=== PATIENT | male | born 1985 | race African-American/Black ===

== ENCOUNTER 2018-07-23 10:28 | Emergency (ER) | payer OTHER ==
[~2018-07-23] VITALS: Ht 172.7 cm; Wt 79.0 kg
[2018-07-23] MEDS ORDERED: LIDOCAINE HCL/PF 1% 10 MG/ML 5ML VIAL IJ ONE (13:15)
[2018-07-23] MEDS ORDERED: IBUPROFEN 800MG TABLET PO ONE (13:15)
[2018-07-23] MEDS ORDERED: BACITRACIN ZINC OINT UDPKT TOP ONE (13:15)
[2018-07-23 14:25] VITALS: BP 134/82
== END 2018-07-23 14:35 | disposition home or self-care (01) ==
LOC: ER 10:28
DX: H60.01 Abscess of right external ear (principal)
CPT/HCPCS: 69000; 99284; J3490; Z7610; 99283

== ENCOUNTER 2020-09-22 10:33 | Emergency (ER) | payer OTHER ==
[~2020-09-22] VITALS: Ht 172.7 cm; Wt 90.0 kg
[2020-09-22] MEDS ORDERED: ACETAMINOPHEN 325MG TABLET PO ONE (11:30)
[2020-09-22] MEDS ORDERED: TRAMADOL 50MG TABLET PO ONE (11:30)
[2020-09-22] MEDS ORDERED: IBUP-2029 MT (12:30)
[2020-09-22] MEDS ORDERED: LIDOCAINE 5% PATCH TOP SCH (12:45)
[2020-09-22] MEDS ORDERED: LIDO1ADH5 TP (12:46)
[2020-09-22 14:01] VITALS: BP 150/83
== END 2020-09-22 14:02 | disposition home or self-care (01) ==
LOC: ER 10:33
DX: M54.2 Cervicalgia (principal); M25.532 Pain in left wrist; F12.10 Cannabis abuse, uncomplicated
CPT/HCPCS: 29125; 73030; 73110; 73130; 99284

== ENCOUNTER 2020-12-02 16:16 | Emergency (ER) | payer OTHER ==
[~2020-12-02] VITALS: Ht 170.2 cm; Wt 89.0 kg
[~2020-12-02 16:16] MED LIST: IBUP-2029 MT; LIDO1ADH5 TP
[2020-12-02 16:34] VITALS: BP 132/91
[2020-12-02] MEDS ORDERED: AMOX-424 MT (18:05)
== END 2020-12-02 18:20 | disposition home or self-care (01) ==
LOC: ER 16:16
DX: H60.00 Abscess of external ear, unspecified ear (principal)
CPT/HCPCS: 99283; Z7610; 99281

== ENCOUNTER 2021-12-05 16:30 | Emergency (ER) | payer BC, OTHER ==
[~2021-12-05] VITALS: Ht 172.7 cm; Wt 88.0 kg
[~2021-12-05 16:30] MED LIST changes: +AMOX-424 MT
[2021-12-05] MEDS ORDERED: IBUP-2029 MT (17:20)
[2021-12-05] MEDS ORDERED: KETOROLAC 60MG/2ML VIAL IM ONE (17:30)
[2021-12-05 18:02] VITALS: BP 112/65
== END 2021-12-05 18:09 | disposition home or self-care (01) ==
LOC: ER 16:42
DX: M25.562 Pain in left knee (principal); I10 Essential (primary) hypertension; M79.89 Other specified soft tissue disorders; F12.10 Cannabis abuse, uncomplicated; Z79.899 Other long term (current) drug therapy
CPT/HCPCS: 73562; 96372; 99283; J1885

== ENCOUNTER → 2021-12-07 | Outpatient (CLI) | payer BC ==
[2021-12-07 17:22] LABS: BASOPHILS % 0.5 % (0.0-2.0); HEMOGLOBIN. 12.5 g/dL (14.0-18.0); MEAN CORPUSCULAR HEMOGLOBIN 27.4 pg (28.0-32.0); MEAN CORPUSCULAR VOLUME 82.9 fL (80.0-94.0); MEAN PLATELET VOLUME 7.6 fl (7.4-10.4); NEUTROPHILS % 75.5 % (40.0-76.0); PLATELET 321 x1000/uL (130-400); RED BLOOD CELL COUNT 4.58 mill/uL (4.7-6.1); RED CELL DISTRIBUTION WIDTH 15.5 % (11.6-14.6)
[2021-12-07 17:34] LABS: CHLORIDE 104 mEq/L (98-107)
[2021-12-07 17:49] LABS: HDL CHOLESTEROL 54 mg/dL (40-59); LDL CHOLESTEROL 162 mg/dL (5-100)
[2021-12-09 04:09] LABS: VITAMIN D 25-OH 12.4 ng/mL (30.0-100.0)
== END | disposition home or self-care (01) ==
LOC: LAB 16:21
PROVIDERS: ATTEND Internal Medicine
DX: E55.9 Vitamin D deficiency, unspecified (principal); E20.9 Hypoparathyroidism, unspecified
CPT/HCPCS: 36415; 80048; 80061; 80076; 82306; 84436; 84443; 85025

== ENCOUNTER → 2021-12-14 | Outpatient (CLI) | payer BC | END | disposition home or self-care (01) | LOC: RAD 14:17 | PROVIDERS: ATTEND Internal Medicine | DX: S82.202B Unspecified fracture of shaft of left tibia, initial encounter for open fracture type I or II (principal); M17.12 Unilateral primary osteoarthritis, left knee; X58.XXXA Exposure to other specified factors, initial encounter; Y93.89 Activity, other specified; Y92.89 Other specified places as the place of occurrence of the external cause; Y99.8 Other external cause status | CPT/HCPCS: 73552; 73562; 73590 ==

== ENCOUNTER → 2021-12-31 | Outpatient (CLI) | payer BC | END | disposition home or self-care (01) | LOC: NM 07:57 | PROVIDERS: ATTEND Internal Medicine | DX: L03.116 Cellulitis of left lower limb (principal); M79.605 Pain in left leg | CPT/HCPCS: 93971 ==

== ENCOUNTER → 2022-01-11 | Outpatient (CLI) | payer BC | END | disposition home or self-care (01) | LOC: MRI 07:37 | PROVIDERS: ATTEND Internal Medicine | DX: S83.207A Unspecified tear of unspecified meniscus, current injury, left knee, initial encounter (principal); M25.462 Effusion, left knee; X58.XXXA Exposure to other specified factors, initial encounter; Y93.89 Activity, other specified; Y92.89 Other specified places as the place of occurrence of the external cause; Y99.8 Other external cause status | CPT/HCPCS: 73721 ==

== ENCOUNTER → 2022-04-19 | Outpatient (CLI) | payer BC ==
[2022-04-19 09:24] LABS: BASOPHILS % 0.6 % (0.0-2.0); HEMATOCRIT. 38.6 % (42.0-52.0); HEMOGLOBIN. 12.8 g/dL (14.0-18.0); LYMPHOCYTES % 34.5 % (20.0-50.0); MEAN CORPUSCULAR HEMOGLOBIN 27.5 pg (28.0-32.0); MEAN CORPUSCULAR VOLUME 82.6 fL (80.0-94.0); MEAN PLATELET VOLUME 7.6 fl (7.4-10.4); MONOCYTES % 8.9 % (2.0-8.0); PLATELET 328 x1000/uL (130-400); RED BLOOD CELL COUNT 4.67 mill/uL (4.7-6.1); RED CELL DISTRIBUTION WIDTH 15.4 % (11.6-14.6)
[2022-04-19 09:37] LABS: CHLORIDE 107 mEq/L (98-107)
[2022-04-19 09:50] LABS: HDL CHOLESTEROL 58 mg/dL (40-59); LDL CHOLESTEROL 176 mg/dL (5-100); T4 FREE 0.95 ng/dL (0.76-1.46)
== END | disposition home or self-care (01) ==
LOC: RAD 08:50
PROVIDERS: ATTEND Internal Medicine
DX: E04.1 Nontoxic single thyroid nodule (principal); R22.1 Localized swelling, mass and lump, neck; I10 Essential (primary) hypertension; E11.9 Type 2 diabetes mellitus without complications; E78.5 Hyperlipidemia, unspecified
CPT/HCPCS: 36415; 76536; 80053; 80061; 82248; 82306; 83036; 84439; 84443; 85025

== ENCOUNTER → 2022-11-17 | Outpatient (CLI) | payer BC ==
[2022-11-17 08:24] LABS: BASOPHILS % 0.8 % (0.0-2.0); EOSINOPHILS % 2.7 % (0.0-5.0); HEMATOCRIT. 37.8 % (42.0-52.0); HEMOGLOBIN. 12.6 g/dL (14.0-18.0); LYMPHOCYTES % 30.7 % (20.0-50.0); MEAN CORPUSCULAR HGB CONC 33.4 g/dL (31.0-37.0); MEAN CORPUSCULAR VOLUME 84.1 fL (80.0-94.0); MEAN PLATELET VOLUME 7.3 fl (7.4-10.4); MONOCYTES % 8.9 % (2.0-8.0); NEUTROPHILS % 56.9 % (40.0-76.0); PLATELET 355 x1000/uL (130-400); RED BLOOD CELL COUNT 4.49 mill/uL (4.7-6.1); RED CELL DISTRIBUTION WIDTH 15.7 % (11.6-14.6); WHITE BLOOD COUNT 4.9 x1000/uL (4.5-11.0)
[2022-11-17 08:49] LABS: ALANINE AMINOTRANSFERASE 25 IU/L (13-61); ALBUMIN 3.9 g/dL (3.4-5.0); ASPARTATE AMINOTRANSFERASE 15 IU/L (15-37); BILIRUBIN DIRECT < 0.1 mg/dL (0.0-0.2); BILIRUBIN TOTAL 0.3 mg/dL (0.1-1.0); CALCIUM 8.4 mg/dL (8.5-10.1); CARBON DIOXIDE 27 mEq/L (21-32); CHLORIDE 105 mEq/L (98-107); CHOLESTEROL 263 mg/dL (<200); CREATININE 0.8 mg/dL (0.6-1.3); GLUCOSE 125 mg/dL (70-105); HDL CHOLESTEROL 72 mg/dL (40-59); INDEX HEMOLYSI 1 (1-3); INDEX ICTERIC 1 (1-4); INDEX LIPEMIC 1 (1-3); LDL CHOLESTEROL 181 mg/dL (5-100); POTASSIUM 3.7 mEq/L (3.5-5.1); PROTEIN TOTAL 7.8 g/dL (6.0-8.3); SODIUM 137 mEq/L (136-145); TRIGLYCERIDE 59 mg/dL (0-150); UREA NITROGEN BLOOD 12 mg/dL (7-21)
[2022-11-17 08:50] LABS: THYROID STIMULATING HORMONE 0.86 uIU/mL (0.36-3.74)
[2022-11-18 06:08] LABS: T4 THYROXINE 5.4 ug/dL (4.5-12.0); VITAMIN D 25-OH 12.8 ng/mL (30.0-100.0)
== END | disposition home or self-care (01) ==
LOC: LAB 08:02
PROVIDERS: ATTEND Internal Medicine
DX: I10 Essential (primary) hypertension (principal); E55.9 Vitamin D deficiency, unspecified; E78.5 Hyperlipidemia, unspecified
CPT/HCPCS: 36415; 80048; 80061; 80076; 82306; 84436; 84443; 85025

== ENCOUNTER → 2023-07-05 | Outpatient (CLI) | payer BC ==
[2023-07-05 07:10] LABS: BASOPHILS % 0.9 % (0.0-2.0); EOSINOPHILS % 3.8 % (0.0-5.0); HEMATOCRIT. 37.6 % (42.0-52.0); HEMOGLOBIN. 12.6 g/dL (14.0-18.0); LYMPHOCYTES % 37.1 % (20.0-50.0); MEAN CORPUSCULAR HEMOGLOBIN 28.6 pg (28.0-32.0); MEAN CORPUSCULAR HGB CONC 33.6 g/dL (31.0-37.0); MEAN CORPUSCULAR VOLUME 85.1 fL (80.0-94.0); MONOCYTES % 9.9 % (2.0-8.0); NEUTROPHILS % 48.3 % (40.0-76.0); PLATELET 340 x1000/uL (130-400); RED BLOOD CELL COUNT 4.42 mill/uL (4.7-6.1); RED CELL DISTRIBUTION WIDTH 15.8 % (11.6-14.6); WHITE BLOOD COUNT 3.6 x1000/uL (4.5-11.0)
[2023-07-05 07:23] LABS: ALANINE AMINOTRANSFERASE 25 IU/L (10-49); ALBUMIN 4.6 g/dL (3.2-4.8); ASPARTATE AMINOTRANSFERASE 24 IU/L (<34); BILIRUBIN DIRECT 0.1 mg/dL (<=3.0); BILIRUBIN TOTAL 0.5 mg/dL (0.1-1.0); CALCIUM 8.6 mg/dL (8.7-10.4); CARBON DIOXIDE 25 mEq/L (21-32); CHLORIDE 105 mEq/L (98-107); CHOLESTEROL 259 mg/dL (<200); CREATININE 0.8 mg/dL (0.6-1.3); GLUCOSE 90 mg/dL (70-105); HDL CHOLESTEROL 60 mg/dL (>55); LDL CHOLESTEROL 196 mg/dL (5-100); PROTEIN TOTAL 7.8 g/dL (6.0-8.3); SODIUM 137 mEq/L (136-145); TRIGLYCERIDE 110 mg/dL (0-150); UREA NITROGEN BLOOD 8 mg/dL (9-23)
== END | disposition home or self-care (01) ==
LOC: LAB 06:21
PROVIDERS: ATTEND Internal Medicine
DX: I10 Essential (primary) hypertension (principal); E11.9 Type 2 diabetes mellitus without complications; E55.9 Vitamin D deficiency, unspecified
CPT/HCPCS: 36415; 80053; 80061; 82248; 82306; 83036; 85025

== ENCOUNTER → 2023-07-12 | Outpatient (CLI) | payer BC | END | disposition home or self-care (01) | LOC: RAD 07:42 | PROVIDERS: ATTEND Internal Medicine | DX: E04.1 Nontoxic single thyroid nodule (principal) | CPT/HCPCS: 73130; 76536 ==

== ENCOUNTER → 2023-11-28 | Outpatient (CLI) | payer BC ==
[2023-11-28 08:07] LABS: EOSINOPHILS % 2.6 % (0.0-5.0); HEMOGLOBIN. 12.3 g/dL (14.0-18.0); LYMPHOCYTES % 32.6 % (20.0-50.0); MEAN CORPUSCULAR HEMOGLOBIN 28.6 pg (28.0-32.0); MEAN CORPUSCULAR HGB CONC 33.2 g/dL (31.0-37.0); MEAN CORPUSCULAR VOLUME 86.3 fL (80.0-94.0); MONOCYTES % 9.5 % (2.0-8.0); NEUTROPHILS % 54.3 % (40.0-76.0); PLATELET 311 x1000/uL (130-400); RED BLOOD CELL COUNT 4.29 mill/uL (4.7-6.1); RED CELL DISTRIBUTION WIDTH 15.6 % (11.6-14.6); WHITE BLOOD COUNT 4.2 x1000/uL (4.5-11.0)
[2023-11-28 08:09] LABS: CHLORIDE 106 mEq/L (98-107); POTASSIUM 3.8 mEq/L (3.5-5.1); SODIUM 137 mEq/L (136-145)
[2023-11-28 08:10] LABS: CALCIUM 9.1 mg/dL (8.7-10.4); CARBON DIOXIDE 27 mEq/L (21-32)
[2023-11-28 08:15] LABS: CREATININE 0.9 mg/dL (0.6-1.3); GLUCOSE 138 mg/dL (70-105); TRIGLYCERIDE 68 mg/dL (0-150); UREA NITROGEN BLOOD 9 mg/dL (9-23)
[2023-11-28 08:16] LABS: LDL CHOLESTEROL 96 mg/dL (5-100)
[2023-11-28 08:17] LABS: ALANINE AMINOTRANSFERASE 12 IU/L (10-49); ALBUMIN 4.4 g/dL (3.2-4.8); ASPARTATE AMINOTRANSFERASE 12 IU/L (<34); BILIRUBIN TOTAL 0.7 mg/dL (0.1-1.0); CHOLESTEROL 145 mg/dL (<200); HDL CHOLESTEROL 37 mg/dL (>55); PROTEIN TOTAL 6.7 g/dL (6.0-8.3)
[2023-11-28 08:19] LABS: THYROID STIMULATING HORMONE 0.61 uIU/mL (0.55-4.78)
== END | disposition home or self-care (01) ==
LOC: LAB 07:38
PROVIDERS: ATTEND Internal Medicine
DX: I10 Essential (primary) hypertension (principal); E78.5 Hyperlipidemia, unspecified; E03.9 Hypothyroidism, unspecified
CPT/HCPCS: 36415; 80053; 80061; 84439; 84443; 85025

== ENCOUNTER → 2024-01-10 | Outpatient (CLI) | payer BC ==
[2024-01-11 13:11] LABS: CHLAMYDIA TRACHOMATIS NAA Negative (Negative); NEISSERIA GONORRHOEAE NAA Negative (Negative)
== END | disposition home or self-care (01) ==
LOC: LAB 07:12
PROVIDERS: ATTEND Internal Medicine
DX: I10 Essential (primary) hypertension (principal); A64 Unspecified sexually transmitted disease
CPT/HCPCS: 36415; 80061; 86592; 87491; 87591

== ENCOUNTER → 2024-04-09 | Outpatient (CLI) | payer BC ==
[2024-04-09 11:06] LABS: CHLORIDE 105 mEq/L (98-107); POTASSIUM 4.1 mEq/L (3.5-5.1); SODIUM 140 mEq/L (136-145)
[2024-04-09 11:07] LABS: CALCIUM 9.7 mg/dL (8.7-10.4); CARBON DIOXIDE 29 mEq/L (21-32)
[2024-04-09 11:12] LABS: CREATININE 0.8 mg/dL (0.6-1.3); GLUCOSE 76 mg/dL (70-105); TRIGLYCERIDE 52 mg/dL (0-150); UREA NITROGEN BLOOD 14 mg/dL (9-23)
[2024-04-09 11:13] LABS: LDL CHOLESTEROL 168 mg/dL (5-100)
[2024-04-09 11:14] LABS: ALANINE AMINOTRANSFERASE 12 IU/L (10-49); ALBUMIN 4.5 g/dL (3.2-4.8); ASPARTATE AMINOTRANSFERASE 16 IU/L (<34); BILIRUBIN TOTAL 0.4 mg/dL (0.1-1.0); CHOLESTEROL 258 mg/dL (<200); HDL CHOLESTEROL 72 mg/dL (>55); PROTEIN TOTAL 7.2 g/dL (6.0-8.3)
== END | disposition home or self-care (01) ==
LOC: LAB 09:10
PROVIDERS: ATTEND Internal Medicine
DX: I10 Essential (primary) hypertension (principal); E78.5 Hyperlipidemia, unspecified; A64 Unspecified sexually transmitted disease
CPT/HCPCS: 36415; 80053; 80061; 86592; 87491; 87591

== ENCOUNTER → 2024-06-28 | Outpatient (CLI) | payer BC ==
[2024-06-28 08:08] LABS: CARBON DIOXIDE 30 mEq/L (21-32); CHLORIDE 106 mEq/L (98-107); POTASSIUM 4.1 mEq/L (3.5-5.1); SODIUM 140 mEq/L (136-145)
[2024-06-28 08:09] LABS: CALCIUM 9.2 mg/dL (8.7-10.4)
[2024-06-28 08:13] LABS: CREATININE 0.8 mg/dL (0.6-1.3); GLUCOSE 96 mg/dL (70-105)
[2024-06-28 08:14] LABS: TRIGLYCERIDE 70 mg/dL (0-150); UREA NITROGEN BLOOD 10 mg/dL (9-23)
[2024-06-28 08:15] LABS: ALANINE AMINOTRANSFERASE 15 IU/L (10-49); ALBUMIN 4.1 g/dL (3.2-4.8); ASPARTATE AMINOTRANSFERASE 12 IU/L (<34); LDL CHOLESTEROL 152 mg/dL (5-100)
[2024-06-28 08:16] LABS: BILIRUBIN TOTAL 0.6 mg/dL (0.1-1.0); CHOLESTEROL 216 mg/dL (<200); HDL CHOLESTEROL 41 mg/dL (>55); PROTEIN TOTAL 6.9 g/dL (6.0-8.3)
[2024-06-28 08:19] LABS: T4 FREE 1.12 ng/dL (0.89-1.76)
[2024-06-28 08:20] LABS: THYROID STIMULATING HORMONE 0.31 uIU/mL (0.55-4.78)
[2024-06-28 08:28] LABS: BASOPHILS % 0.9 % (0.0-2.0); EOSINOPHILS % 2.8 % (0.0-5.0); HEMATOCRIT. 37.3 % (42.0-52.0); HEMOGLOBIN. 12.3 g/dL (14.0-18.0); LYMPHOCYTES % 36.9 % (20.0-50.0); MEAN CORPUSCULAR HEMOGLOBIN 27.5 pg (28.0-32.0); MEAN CORPUSCULAR VOLUME 83.6 fL (80.0-94.0); MEAN PLATELET VOLUME 7.8 fl (7.4-10.4); MONOCYTES % 8.4 % (2.0-8.0); PLATELET 298 x1000/uL (130-400); RED BLOOD CELL COUNT 4.47 mill/uL (4.7-6.1); RED CELL DISTRIBUTION WIDTH 14.8 % (11.6-14.6); WHITE BLOOD COUNT 4.2 x1000/uL (4.5-11.0)
== END | disposition home or self-care (01) ==
LOC: LAB 07:20
PROVIDERS: ATTEND Internal Medicine
DX: I10 Essential (primary) hypertension (principal); E78.5 Hyperlipidemia, unspecified; E03.9 Hypothyroidism, unspecified
CPT/HCPCS: 36415; 80053; 80061; 84439; 84443; 85025

== ENCOUNTER → 2024-10-22 | Outpatient (CLI) | payer BC | END | disposition home or self-care (01) | LOC: MRI 07:36 | PROVIDERS: ATTEND Student in an Organized Health Care Education/Training Program | DX: M77.31 Calcaneal spur, right foot (principal); M25.871 Other specified joint disorders, right ankle and foot; M79.671 Pain in right foot | CPT/HCPCS: 73630; 73718 ==